=== PATIENT | female | born 1955 | race Caucasian/White ===

== ENCOUNTER 2022-10-09 13:30 | Outpatient (CLI) | payer MEDICARE, BC, SELFPAY ==
[2022-10-09 15:36] LABS: Cholesterol* 221 mg/dL (90-199); Glucose* 96 mg/dL (60-115); Triglycerides* 134 mg/dL (40-149)
[2022-10-09 15:37] LABS: HDL Cholesterol* 68 mg/dL (>=50); LDL Cholesterol Calculated 126 mg/dL (<100)
== END 2022-10-09 13:31 | disposition home or self-care (01) ==
LOC: NFLDREF 13:31
PROVIDERS: PCP Family Medicine; Visit Provider Family Medicine
DX: E78.5 Hyperlipidemia, unspecified (principal); Z13.1 Encounter for screening for diabetes mellitus
CPT/HCPCS: 80061; 82947

== ENCOUNTER 2022-12-20 13:03 | Outpatient (CLI) | payer MEDICARE, BC, SELFPAY ==
--- NOTE | 2022-12-20 13:00 | CRLHL7_ITS ---
For Patients: As a result of the Century Cures Act, medical imaging exams and procedure reports are released immediately into your electronic medical record. You may view this report before your referring provider. If you have questions, please contact your health care provider. DXA BONE MINERAL DENSITY STUDY Current height (in): 65.0. Weight (lb): 180.0. Menopause age: 54. Ethnicity: White. Reason for exam: Postmenopausal state. 1. Have you had a previous hip or vertebral fracture? No. 2. Have you had any fractures during your adult life which did not result from significant trauma (e.g., auto accident)? No. 3. Did either of your parents have a hip fracture? No. 4. Do you smoke? No. 5. Have you ever taken Glucocorticoids? No. 6. Do you have rheumatoid arthritis? No. 7. Do you have secondary osteoporosis? No. 8. Do you drink 3 or more alcoholic drinks per day? No. 9. Are you being treated for osteoporosis? No. 10. Have you ever taken any of the following medications: Actonel, Evista, Fosamax, Miacalcin, Reclast, Boniva, Forteo, HRT (i.e. estrogen/hormone therapy), Protelos, Prolia, Vitamin D, Calcium, other ??? please specify. ANSWER: No. 11. Do you have any of the following medical conditions: Anorexia or bulimia, asthma or emphysema, end stage renal disease, hyperparathyroidism, any seizure disorders, cancer, inflammatory bowel diseases, hysterectomy, other ??? please specify. ANSWER: No. 12. What was your maximum height (inches)? 66. 13. Do you perform weight bearing exercise regularly? No. 14. Do you regularly consume dairy products? Yes. 15. Do you drink caffeinated beverages? No. 16. At what age did your period start? 16. 17. Are you premenopausal? No. 18. How many full term pregnancies have you had? 1. 19. Have you ever missed your period for more than 6 months in a row (not including or menopause)? No. TECHNIQUE: Bone mineral density study was performed using the [employer]. FINDINGS: The results of the study expressed as bone mineral density (BMD) are as follows: Lumbar spine L1 to L4: BMD: 0.901 g/cm2. T-score: -1.1. Z-score: 0.7. Neck Left: BMD: 0.653 g/cm2. T-score: -1.8. Z-score: -0.2. Right: BMD: 0.672 g/cm2. T-score: -1.6. Z-score: -0.0. Total Left: BMD: 0.769 g/cm2. T-score: -1.4. Z-score: -0.2. Right: BMD: 0.787 g/cm2. T-score: -1.3. Z-score: -0.0. IMPRESSION: Osteopenia. FRAX 10-year Fracture Risk Major Osteoporotic Fracture: 9.4percent Hip Fracture: 1.2 percent Reported Risk Factors: [place] () Neck BMD = 0.653, BMI = 30.0 Fahad Johnson M.D. Diagnostic Radiologist [email or web address] Transcribed: 3:08 pm DW/Dictated by: Fahad Johnson MD @ 12/21/2022 11:50:00 AM (Electronically Signed)
== END 2022-12-20 13:04 | disposition home or self-care (01) ==
LOC: RAD 13:06
PROVIDERS: PCP Family Medicine; Visit Provider Family Medicine
DX: Z78.0 Asymptomatic menopausal state (principal); M85.89 Other specified disorders of bone density and structure, multiple sites
CPT/HCPCS: 77080

== ENCOUNTER 2022-12-31 09:17 | Outpatient (CLI) | payer MEDICARE, BC, SELFPAY | END 2022-12-31 09:18 | disposition home or self-care (01) | LOC: NFLDREF 01-01 12:51 | PROVIDERS: PCP Family Medicine; Referring Provider Family Medicine; Visit Provider Family Medicine | DX: M85.80 Other specified disorders of bone density and structure, unspecified site (principal) | CPT/HCPCS: 82306 ==

== ENCOUNTER 2023-04-04 14:49 | Outpatient (CLI) | payer MEDICARE, BC, SELFPAY | END 2023-04-04 14:50 | disposition home or self-care (01) | LOC: RAD 14:50 | PROVIDERS: PCP Family Medicine; Visit Provider Internal Medicine Cardiovascular Disease | DX: Q23.1 Congenital insufficiency of aortic valve (principal); I35.0 Nonrheumatic aortic (valve) stenosis; I34.0 Nonrheumatic mitral (valve) insufficiency | CPT/HCPCS: 93306 ==

== ENCOUNTER 2023-06-03 09:45 | Outpatient (RCR) | payer MEDICARE, BC, SELFPAY | END 2023-10-01 23:59 | disposition home or self-care (01) | PROVIDERS: PCP Family Medicine; Visit Provider Physician Assistant | DX: Z98.890 Other specified postprocedural states (principal); Z51.89 Encounter for other specified aftercare | CPT/HCPCS: 97110; 97140; 97161 ==

== ENCOUNTER 2023-06-03 12:56 | Outpatient (CLI) | payer MEDICARE, BC, SELFPAY ==
--- NOTE | 2023-06-03 13:00 | CRLHL7_ITS ---
For Patients: As a result of the Cures Act, medical imaging exams and procedure reports are released immediately into your electronic medical record. You may view this report before your referring provider. If you have questions, please contact your health care provider. BILATERAL SCREENING MAMMOGRAM WITH COMPUTER-AIDED DETECTION AND TOMOSYNTHESIS TECHNIQUE: CC and MLO views were obtained. These mammographic images have been obtained using full-field digital technique. These mammographic images were interpreted with the benefit of computer-aided detection. Breast Tomosynthesis was used in this interpretation. COMPARISON FILM: 12/08/21, 11/15/20, 11/11/19. FINDINGS: There are scattered areas of fibroglandular density IMPRESSION: There is no radiographic evidence for malignancy. ASSESSMENT: BI-RADS Category 1: Negative RECOMMENDATION: Routine screening mammogram in 1 year. A lay language report of this examination will be provided to the patient. Khanh Low M.D. Diagnostic/Nuclear Medicine Radiologist [email or web address] DOLORES/Dictated by: Khanh Low MD @ 06/05/2023 10:20:00 AM (Electronically Signed)
== END 2023-06-03 12:57 | disposition home or self-care (01) ==
PROVIDERS: PCP Family Medicine; Visit Provider Family Medicine
DX: Z12.31 Encounter for screening mammogram for malignant neoplasm of breast (principal)
CPT/HCPCS: 77063; 77067; 97110

== ENCOUNTER 2023-09-02 07:30 | Outpatient (RCR) | payer MEDICARE, BC, SELFPAY | END 2023-12-31 23:59 | disposition home or self-care (01) | PROVIDERS: PCP Family Medicine; Visit Provider Family Medicine | DX: H81.11 Benign paroxysmal vertigo, right ear (principal); M79.89 Other specified soft tissue disorders; Z51.89 Encounter for other specified aftercare | CPT/HCPCS: 97140; 97161; 97530 ==

== ENCOUNTER 2023-09-16 09:43 | Outpatient (CLI) | payer MEDICARE, BC, SELFPAY | END 2023-09-16 09:44 | disposition home or self-care (01) | LOC: NFLDREF 09:45 | PROVIDERS: PCP Family Medicine; Visit Provider Internal Medicine | DX: R10.9 Unspecified abdominal pain (principal) | CPT/HCPCS: 80053 ==

== ENCOUNTER 2023-09-18 10:28 | Outpatient (CLI) | payer MEDICARE, BC, SELFPAY ==
--- NOTE | 2023-09-18 10:45 | CRLHL7_ITS ---
For Patients: As a result of the Century Cures Act, medical imaging exams and procedure reports are released immediately into your electronic medical record. You may view this report before your referring provider. If you have questions, please contact your health care provider. INDICATION: ABD PAIN COMPARISON: none TECHNIQUE: Real time pool scale imaging and color Doppler analysis was performed of the right upper quadrant. FINDINGS: Hyperechoic lesion within the right hepatic lobe measures 6 x 6 x 7 millimeters. Mildly coarsened intrahepatic echotexture. There is a normal appearance of the hepatic IVC and proximal abdominal aorta. There is no evidence of ascites. The gallbladder is of normal size and there is no evidence of intraluminal stones or sludge. The gallbladder wall measures 2.2 mm in thickness. The common bile duct is of normal size and measures 4.6 mm in diameter at the level of the homero hepatis. The pancreas appears normal. There is no evidence of a stone or hydronephrosis within the right kidney. The right kidney measures 12.0 cm in length. IMPRESSION: Normal ultrasound of the gallbladder. Incidental hemangioma within the liver measuring 7 millimeters. Mild hepatic steatosis. Dictated by Fahad Johnson MD @ 09/18/2023 11:36:53 AM (Electronically Signed)
== END 2023-09-18 10:29 | disposition home or self-care (01) ==
LOC: US 10:29
PROVIDERS: PCP Family Medicine; Visit Provider Internal Medicine
DX: R10.9 Unspecified abdominal pain (principal); K76.0 Fatty (change of) liver, not elsewhere classified
CPT/HCPCS: 76705

== ENCOUNTER 2023-09-26 12:47 | Outpatient (CLI) | payer MEDICARE, BC, SELFPAY ==
--- NOTE | 2023-09-26 13:00 | CRLHL7_ITS ---
For Patients: As a result of the Century Cures Act, medical imaging exams and procedure reports are released immediately into your electronic medical record. You may view this report before your referring provider. If you have questions, please contact your health care provider. Clinical History: Abdominal pain Radionuclide Dose: Nuclear medicine hepatobiliary scan with gallbladder ejection fraction after CCK was completed per protocol. 5.3 mCi 99m Tc Choletec; IV. 1.6 mcg Kinevac IV. Comparison: Right upper quadrant ultrasound September 18, 2023. Findings: Normal extraction and excretion of the radiopharmaceutical is noted with prompt appearance of the common bile duct followed by the gallbladder and small bowel. There is no enterogastric reflux. Prompt, near complete contraction of the gallbladder is noted after the administration of CCK. Patient`s symptoms were not recorded. Calculated gallbladder ejection fraction is 96 percent. Impression: Hyperkinetic gallbladder Dictated by Alvin Brice MD @ 09/26/2023 5:52:08 PM (Electronically Signed)
== END 2023-09-26 12:48 | disposition home or self-care (01) ==
LOC: NM 12:48
PROVIDERS: PCP Family Medicine; Visit Provider Internal Medicine
DX: R10.9 Unspecified abdominal pain (principal)
CPT/HCPCS: 78227; A9537; J2805

== ENCOUNTER 2024-01-08 13:49 | Outpatient (CLI) | payer MEDICARE, BC, SELFPAY | END 2024-01-08 13:50 | disposition home or self-care (01) | PROVIDERS: PCP Family Medicine; Visit Provider Family Medicine | DX: G62.9 Polyneuropathy, unspecified (principal); R20.2 Paresthesia of skin; M54.50 Low back pain, unspecified | CPT/HCPCS: 80053; 82607; 82728; 84443 ==